=== PATIENT | female | born 1980 | race Caucasian/White ===

== ENCOUNTER 2016-12-08 15:17 | Emergency (ER) | payer SELFPAY ==
[~2016-12-08] VITALS: Ht 162.6 cm; Wt 73.0 kg
[2016-12-08 15:19] VITALS: BP 164/90; PULSE 101; RESP 17; TEMP 97.9; O2SAT 99
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
--- NOTE | 2016-12-08 17:36 | RADRPT ---
EXAM DATE/TIME: 12/08/2016 17:21 [facility] COMPARISON: No previous studies available for comparison. INDICATIONS : Left foot pain after fall. MEDICAL HISTORY : None. SURGICAL HISTORY : None. ENCOUNTER: Initial ACUITY: 2 days PAIN SCORE: 5/10 LOCATION: Left foot, 2nd digit. FINDINGS: Three view examination of the left foot demonstrates no dislocation or fracture. The second toe swoll en. The tarsal bones appear intact. The interphalangeal and metatarsophalangeal joints are intact. The calcaneus is intact. Bony mineralization is normal. CONCLUSION: Soft tissue swelling without evidence of acute fracture involving the left second toe . Isaías Bean MD on December 08, 2016 at 17:33 Board Certified Radiologist. This report was verified electronically.
--- NOTE | 2016-12-08 17:37 | RADRPT ---
EXAM DATE/TIME: 12/08/2016 17:24 [facility] COMPARISON: No previous studies available for comparison. INDICATIONS : Cough. MEDICAL HISTORY : smoker. SURGICAL HISTORY : None. ENCOUNTER: Initial ACUITY: 2 months PAIN SCORE: 0/10 LOCATION: Bilateral chest FINDINGS: PA and lateral views of the chest demonstrate the lungs to be symmetrically aerated without evidence of mass, infiltrate or effusion. The cardiomediastinal contours are unremarkable. Osseous structure s are intact. CONCLUSION: No acute disease. Isaías Bean MD on December 08, 2016 at 17:35 Board Certified Radiologist. This report was verified electronically.
[2016-12-08 17:48] LABS: AUTOMATED NEUTROPHIL # 2.7 TH/MM3 (1.8-7.7); BASOPHIL % 0.7 % (0.0-2.0); EOSINOPHIL # 0.1 TH/MM3 (0-0.4); EOSINOPHIL % 2.4 % (0.0-4.0); HEMATOCRIT 43.7 % (35.0-46.0); LYMPH % 31.5 % (9.0-44.0); LYMPHOCYTE # 1.5 TH/MM3 (1.0-4.8); MEAN CELL VOLUME 99.2 FL (80.0-100.0); MEAN CORPUSCULAR HEMOGLOBIN 33.8 PG (27.0-34.0); MEAN CORPUSCULAR HGB CONC 34.1 % (32.0-36.0); NEUT % 56.4 % (16.0-70.0); PLATELET COUNT 88 TH/MM3 (150-450); RED CELL DISTRIBUTION WIDTH 13.5 % (11.6-17.2); WHITE BLOOD COUNT 4.7 TH/MM3 (4.0-11.0)
[2016-12-08 17:51] VITALS: BP 181/80; PULSE 112; RESP 18; O2SAT 96
[2016-12-08 17:53] LABS: HEMO FLAGS AUTO DIFF
[2016-12-08 18:02] LABS: ANION GAP 10 MEQ/L (5-15); APTT (PATIENT) 27.6 SEC (24.3-30.1); INTERNATIONAL NORMALIZED RATIO 0.9 RATIO; PROTHROMBIN TIME - PATIENT 10.3 SEC (9.8-11.6)
[2016-12-08 18:07] LABS: ALKALINE PHOSPHATASE 76 U/L (45-117); ALT (GPT) 179 U/L (10-53); AST (GOT) 184 U/L (15-37); BICARBONATE 28.5 MEQ/L (21.0-32.0); BLOOD UREA NITROGEN 5 MG/DL (7-18); CHLORIDE 105 MEQ/L (98-107); GLOMERULAR FILTRATION RATE 84 ML/MIN (>89); POTASSIUM 3.6 MEQ/L (3.5-5.1); SODIUM (NA) 143 MEQ/L (136-145); TOTAL BILIRUBIN ADULT 0.4 MG/DL (0.2-1.0)
[2016-12-08 18:14] VITALS: BP 145/84; PULSE 103; RESP 18; O2SAT 98
[2016-12-08] MEDS ORDERED: ACETAMINOPHEN/HYDROcodone 325 MG/5 MG TAB PO ONE (18:15)
[2016-12-08 18:26] LABS: PLATELET ESTIMATE SMEAR LOW (NORMAL); PLATELET MORPHOLOGY NORMAL (NORMAL); SCAN/DIFF AUTO DIFF CONFIRMED
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
[2016-12-08] MEDS ORDERED: DICL75TA PO (19:16)
--- NOTE | 2016-12-08 19:25 | PD ---
Physical Exam Date Seen by Provider: Dec 08, 2016 Time Seen by Provider: 19:16 Narrative 36-year-old female that presents to the ED for evaluation of head trauma and no trauma. Case was signed out to me by Luz KINSEY who ordered initial labs and testing. Please refer to her note. On my exam patient is neurovascularly intact. She complains of only a headache as well as some left toe pain. Data Data Last Documented VS Vital Signs Date Time Temp Pulse Resp B/P Pulse Ox O2 Delivery O2 Flow Rate FiO2 12/08/16 18:14 103 18 145/84 98 Room Air 12/08/16 15:19 97.9 Orders Chest, Pa & Lat (12/08/16 ) Ct Brain W/O Iv Contrast(Rout) (12/08/16 ) Ct Cerv Spine W/O Contrast (12/08/16 ) Ed Urine Pregnancytest Poc (12/08/16 17:06) Alcohol (Ethanol) (12/08/16 17:06) Comprehensive Metabolic Panel (12/08/16 17:06) Complete Blood Count With Diff (12/08/16 17:06) Act Partial Throm Time (Ptt) (12/08/16 17:06) Prothrombin Time / Inr (Pt) (12/08/16 17:06) Foot, Complete ([id number]) (12/08/16 ) Acetamin-Hydrocod 325-5 Mg ([place] 5-325 (12/08/16 18:15) Labs Laboratory Tests Test 12/08/16 17:30 White Blood Count 4.7 TH/MM3 Red Blood Count 4.40 MIL/MM3 Hemoglobin 14.9 GM/DL Hematocrit 43.7 % Mean Corpuscular Volume 99.2 FL Mean Corpuscular Hemoglobin 33.8 PG Mean Corpuscular Hemoglobin 34.1 % Concent Red Cell Distribution Width 13.5 % Platelet Count 88 TH/MM3 Mean Platelet Volume 8.3 FL Neutrophils (%) (Auto) 56.4 % Lymphocytes (%) (Auto) 31.5 % Monocytes (%) (Auto) 9.0 % Eosinophils (%) (Auto) 2.4 % Basophils (%) (Auto) 0.7 % Neutrophils # (Auto) 2.7 TH/MM3 Lymphocytes # (Auto) 1.5 TH/MM3 Monocytes # (Auto) 0.4 TH/MM3 Eosinophils # (Auto) 0.1 TH/MM3 Basophils # (Auto) 0.0 TH/MM3 CBC Comment AUTO DIFF Differential Comment AUTO DIFF CONFIRMED Platelet Estimate LOW Platelet Morphology Comment NORMAL Red Cell Morphology Comment NORMAL Prothrombin Time 10.3 SEC Prothromb Time International 0.9 RATIO Ratio Activated Partial 27.6 SEC Thromboplast Time Sodium Level 143 MEQ/L Potassium Level 3.6 MEQ/L Chloride Level 105 MEQ/L Carbon Dioxide Level 28.5 MEQ/L Anion Gap 10 MEQ/L Blood Urea Nitrogen 5 MG/DL Creatinine 0.78 MG/DL Estimat Glomerular Filtration 84 ML/MIN Rate Random Glucose 105 MG/DL Calcium Level 8.6 MG/DL Total Bilirubin 0.4 MG/DL Aspartate Amino Transf 184 U/L (AST/SGOT) Alanine Aminotransferase 179 U/L (ALT/SGPT) Alkaline Phosphatase 76 U/L Total Protein 8.0 GM/DL Albumin 4.4 GM/DL Ethyl Alcohol Level 315 MG/DL [facility] Medical Record Reviewed: Yes Supervised Visit with DAMASO: No Interpretation(s) CBC & BMP Diagram 12/08/16 17:30 Alcohol in the 300s Last Impressions Head CT 12/08/16 0000 Signed Impressions: Service Date/Time: Thursday, December 08, 2016 18:33 - CONCLUSION: Normal examination for a patient of this age. Savage Lemus MD Cervical Spine CT 12/08/16 0000 Signed Impressions: Service Date/Time: Thursday, December 08, 2016 18:33 - CONCLUSION: 1. Kyphosis centered at C6. 2. Primary bony degenerative changes at C5-6 and C6-7 with disc space narrowing. 3. No acute bony fracture. Savage Lemus MD X-ray of the left foot and chest was negative. Coags and LFTs within normal limits. Differential Diagnosis Fracture versus head injury versus ICH versus subarachnoid hemorrhage versus bleeding versus migraine headache versus alcohol abuse Narrative Course 36-year-old female that presents to the ED for evaluation of head injury and toe injury. Patient was signed out to me by luz KINSEY. Please refer to her note. Labs and imaging were essentially unremarkable. No sign of acute disease other than positive alcohol of 300. Patient was given Lortab for pain with good results here. Patient feels improved. Patient has been in no distress. On my exam she is neurovascularly intact in no sign of acute disease other than a bruise to her left second toe. Patient does have intoxication on board. I do not seen any need at this time for further testing. She has been sleeping in her room in no distress and in no pain. patient will be allowed to sleep of her intoxication until medically sober unless somebody can come pick her up who is sober and responsible. She agrees with this plan. Follow with PCP. See ED worsening symptoms. Patient will be sent home with prescription for diclofenac sodium. Diagnosis Primary Impression: Head injury, acute Qualified Code: S09.90XA - Head injury, acute, initial encounter Additional Impressions: Toe contusion Qualified Code: S90.222A - Contusion of lesser toe of left foot with damage to nail, initial encounter Alcohol abuse Patient Instructions: General Instructions, Narcotic given in the ED Additional Instruction: Take medication as prescribed only needed for pain. Follow with PCP. Stop drinking alcohol for a week as you suffered a head injury. See ED worsening symptoms. Med/Other Pt SpecificInfo: Prescription(s) given Scripts Diclofenac Sodium DR 75 Mg Tabdr75 Mg PO BID PRN (PAIN SCALE 1 TO 10) #20 TAB Prov:Rico Overton MD 12/08/16 Disposition: 01 DISCHARGE HOME Condition: Stable Jose A Bonner Dec 08, 2016 19:25
== END 2016-12-08 19:42 | disposition home or self-care (01) ==
LOC: NEPC 15:17
DX: S09.90XA Unspecified injury of head, initial encounter (principal); S90.222A Contusion of left lesser toe(s) with damage to nail, initial encounter; F10.10 Alcohol abuse, uncomplicated; Z72.0 Tobacco use; W04.XXXA Fall while being carried or supported by other persons, initial encounter
CPT/HCPCS: 70450; 71020; 72125; 73630; 80053; 80307; 84703; 85025; 85610; 85730

== ENCOUNTER 2017-09-24 16:40 | Emergency (ER) | payer SELFPAY ==
[~2017-09-24 16:40] MED LIST: DICL75TA PO
[2017-09-24 16:42] VITALS: BP 183/116; PULSE 114; RESP 16; TEMP 98.8; O2SAT 99
--- NOTE | 2017-09-24 18:17 | RADRPT ---
EXAM DATE/TIME: 09/24/2017 18:01 [facility] COMPARISON: CT BRAIN W/O CONTRAST, December 08, 2016, 18:33. INDICATIONS : Trauma, fall. RADIATION DOSE: 56.35 CTDIvol (mGy) MEDICAL HISTORY : Hypertension. SURGICAL HISTORY : None. ENCOUNTER: Initial ACUITY: 1 day PAIN SCALE: 8/10 LOCATION: cranial TECHNIQUE: Multiple contiguous axial images were obtained of the head. Using automated exposure control and adj ustment of the mA and/or kV according to patient size, radiation dose was kept as low as reasonably a chievable to obtain optimal diagnostic quality images. DICOM format image data is available electro nically for review and comparison. FINDINGS: The ventricles are symmetric and normal. No abnormal extra-axial fluid collections are identified. Th ere is no mismatched cranial hemorrhage or mass. Esophagus suggest acute infarction. There is fluid a nd mucosal thickening in the left maxillary sinus. Extracranial structures are grossly intact. CONCLUSION: No acute intracranial injury Ezequiel Hurd MD on September 24, 2017 at 18:14 Board Certified Radiologist. This report was verified electronically.
--- NOTE | 2017-09-24 18:32 | PD ---
HPI Chief Complaint: Fall Time Seen by Provider: 18:17 Travel History International Travel<30 days: No Contact w/Intl Traveler<30days: No Traveled to known affect area: No History of Present Illness HPI 37 year old female presents to the emergency Department with complaint of headache, neck pain, low back pain after falling down a flight of stairs at her house on September 20. She said she hit her head and lost consciousness. She has been ambulatory since. She denies chest pain, abdominal pain. Reports feeling short of breath. Reports episodes of vomiting for the past 3 days. Denies hematemesis. Says she has felt confused. Denies disorientation, slurred speech, change in mentation. Denies focal deficits or weakness. Denies difficulty ambulating. Denies encopresis, incontinence, saddle anesthesias. Denies paresthesias, loss of sensation, decreased range of motion , decreased strength all extremities. Headache is generalized to the top and back of the head. Rates all her pain 8/10. Describes her pain as throbbing, aching. Took a Lortab earlier today for symptom management. Pain is aggravated with movement. Reports tobacco use. No known relieving factors. Allergies to amitriptyline. Has no other medical complaints. No other modifying factors or associated signs and symptoms. PFSH Past Medical History Hypertension: Yes ?: Not : 3 Para: 3 Past Surgical History Other Surgery: Yes Social History Alcohol Use: Yes Tobacco Use: Yes Substance Use: No Allergies-Medications (Allergen,Severity, Reaction): Coded Allergies: amitriptyline (Unverified Allergy, Severe, SWELLING, 09/24/17) Reported Meds & Prescriptions Reported Meds & Active Scripts Active Robaxin (Methocarbamol) 500 Mg Tab 500 Mg PO QID PRN Ibuprofen 800 Mg Tab 800 Mg PO Q6HR PRN Diclofenac Sodium DR (Diclofenac Sodium) 75 Mg Tabdr 75 Mg PO BID PRN Review of Systems Except as stated in HPI: all other systems reviewed are Neg Physical Exam Narrative GENERAL: Well-nourished, well-developed female patient, in no acute distress; breath smells of EtOH. SKIN: Warm and dry. A couple Bruises noted to bilateral upper extremities. HEAD: Atraumatic. Normocephalic. No facial or scalp abrasions or lacerations noted. Tongue midline. No facial droop noted. Finger to nose test normal. EYES: Pupils equal and round at 3 mm with brisk reaction. No scleral icterus. No injection or drainage. No raccoon eyes. ENT: Mucosa pink and moist. No erythema or exudates. No uvular edema. No uvular , palatal, or tonsillar deviation. Airway patent. Nares without nasal blood, purulent drainage or septal hematoma. No rhinorrhea. EARS: Bilateral pinnae and external canals appear within normal limits. Bilateral tympanic membranes without erythema, dullness, hemotympanum or perforation. No otorrhea. No prado signs. NECK: Moving freely. Trachea midline. No lymphadenopathy. Active rotation of the neck greater than 45 left and right. Midline point tenderness on palpation of the cervical spine. No obvious deformities. CHEST: No retractions or use of accessory muscles. CARDIOVASCULAR: Regular rate and rhythm. No murmur appreciated. RESPIRATORY: No accessory muscle use. Clear to auscultation. Breath sounds equal bilaterally. GASTROINTESTINAL: Abdomen soft, non-tender, nondistended. Hepatic and splenic margins not palpable. Bowel sounds are active 4 quadrants. MUSCULOSKELETAL: Bilateral lower extremities supple and non-tense with 2+ pedal pulses and sensory intact without erythema or edema. Bilateral straight leg raises is negative for low back pain. Active dorsiflexion and extension of feet. Ambulatory with normal gait. No obvious deformities. No clubbing. No cyanosis. No edema. BACK: No Point tenderness on palpation of the thoracic spine. No midline tenderness on palpation of the lumbar spine and tenderness of the patient a bilateral iliosacral areas of the lower back. No obvious deformities. Patient sitting up in bed at 90. Ambulatory in room with normal gait. NEUROLOGICAL: Awake and alert. Oriented 3. No obvious cranial nerve deficits. Motor grossly within normal limits. Normal speech. No midline drift. No upper or lower extremity drift. No ataxia. Moves all extremities. 5/5 strength to all extremities. Sensory intact. PSYCHIATRIC: Appropriate mood and affect; insight and judgment normal. Data Data Last Documented VS Vital Signs Date Time Temp Pulse Resp B/P (MAP) Pulse Ox O2 Delivery O2 Flow Rate FiO2 09/24/17 19:21 09/24/17 16:42 98.8 114 16 99 Orders Orders Ed Urine Pregnancytest Poc (09/24/17 16:49) Ct Cerv Spine W/O Contrast (09/24/17 ) Ct Brain W/O Iv Contrast(Rout) (09/24/17 ) Ct Lumb Spine W/O Contrast (09/24/17 ) Chest, Single Ap (09/24/17 18:35) Ketorolac Inj (Toradol Inj) (09/24/17 19:00) Orphenadrine Inj (Norflex Inj) (09/24/17 19:00) Ed Discharge Order (09/24/17 19:08) [facility] Medical Decision Making Medical Screen Exam Complete: Yes Emergency Medical Condition: Yes Medical Record Reviewed: Yes Differential Diagnosis Fall, neck strain, low back strain, posttraumatic headache, acute headache medical clearance Narrative Course 37-year-old female with neck pain, low back pain, headache after falling down a flight of stairs on [employer]. Patient has smell of EtOH on her breath. She does not know how many stairs she fell down. She reports hitting her head and losing consciousness. Patient reports feeling short of breath. Her lung sounds are clear and equal throughout. She is in no acute distress. Oxygen saturation is 99% on room air. Denies encopresis, incontinence, saddle anesthesias. Neuro exam is unremarkable. CT lumbar spine, CT cervical spine, CT head ordered in triage. Chest x-ray ordered for complaint of shortness of breath. 1844: CT lumbar spine, head CT, cervical spine CT concludes: Lumbar Spine CT 09/24/17 0000 Signed Impressions: Service Date/Time: August 18:04 - CONCLUSION: No acute bony injury in the lumbar spine Ezequiel Hurd MD Head CT 09/24/17 0000 Signed Impressions: Service Date/Time: August 18:01 - CONCLUSION: No acute intracranial injury Ezequiel Hurd MD Cervical Spine CT 09/24/17 0000 Signed Impressions: Service Date/Time: August 18:00 - CONCLUSION: Stable appearance of the cervical spine. No evidence of acute bony injury Ezequiel Hurd MD Toradol and Norflex ordered. 1900: Chest x-ray with no acute findings. Discussed all radiology findings with the patient. Discussed patient with Dr. Gonzalez when she agrees with discharge. Robaxin and ibuprofen prescribed for home. Instructed patient to follow up with primary care provider. Patient verbalizes understanding and agreement with treatment plan. Patient is medically cleared and stable for discharge. Discussed reasons to return to the emergency department. Patient agrees with treatment plan. The patients vital signs are stable and the patient is stable for outpatient follow-up and treatment. Patient discharged home, stable and in no acute distress. Diagnosis Primary Impression: Fall down stairs Qualified Codes: W10.8XXA - Fall (on) (from) other stairs and steps, initial encounter Additional Impressions: Neck strain Qualified Codes: S16.1XXA - Strain of muscle, fascia and tendon at neck level , initial encounter Low back strain Qualified Codes: S39.012A - Strain of muscle, fascia and tendon of lower back , initial encounter Headache Qualified Codes: R51 - Headache Shortness of breath Referrals: [facility] Primary Care Physician Patient Instructions: Acute Headache (ED), Cervical Neck Strain Exercises (GEN) , Chronic Post Traumatic Headache (ED), General Instructions, Low Back Strain ( ED), Neck Strain Exercises (GEN) Additional Instructions: Tylenol or ibuprofen as directed and as needed for pain Robaxin as prescribed and as needed for muscle spasms Heating pad and/or ice to affected area to reduce pain Avoid aggravating activities; increase activity as tolerated Follow-up with primary care provider Return to emergency department immediately with worsening of symptoms Med/Other Pt SpecificInfo: Prescription(s) given Scripts Methocarbamol (Robaxin) 500 Mg Tab 500 MG PO QID Y for MUSCLE SPASM, #30 TAB 0 Refills Prov: Regina Olvera 09/24/17 Ibuprofen (Ibuprofen) 800 Mg Tab 800 MG PO Q6HR Y for PAIN, #30 TAB 0 Refills Prov: Regina Olvera 09/24/17 Disposition: 01 DISCHARGE HOME Condition: Stable Regina Olvera Sep 24, 2017 18:32
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
[2017-09-24] MEDS ORDERED: ORPHENADRINE INJ 60 MG/2 ML AMP IM ONE (19:00)
[2017-09-24] MEDS ORDERED: KETOROLAC TROMETHAMINE 60 MG/2 ML (IM) VIAL IM ONE (19:00)
[2017-09-24] MEDS ORDERED: ROBA500T PO (19:02)
[2017-09-24] MEDS ORDERED: IBUP1TAB7 PO (19:02)
== END 2017-09-24 19:36 | disposition home or self-care (01) ==
LOC: NEPD 16:40
DX: S16.1XXA Strain of muscle, fascia and tendon at neck level, initial encounter (principal); S39.012A Strain of muscle, fascia and tendon of lower back, initial encounter; R06.02 Shortness of breath; R11.10 Vomiting, unspecified; R41.0 Disorientation, unspecified; I10 Essential (primary) hypertension; W10.8XXA Fall (on) (from) other stairs and steps, initial encounter; Y92.008 Other place in unspecified non-institutional (private) residence as the place of occurrence of the external cause; Z72.0 Tobacco use
CPT/HCPCS: 70450; 71010; 72125; 72131; 84703; 96372; 99285; J1885; J2360

== ENCOUNTER 2017-11-15 14:41 | Emergency (ER) | payer SELFPAY ==
[~2017-11-15] VITALS: Ht 160 cm; Wt 68.0 kg
[~2017-11-15 14:41] MED LIST changes: +IBUP1TAB7 PO; +ROBA500T PO
[2017-11-15 14:45] VITALS: BP 174/104; PULSE 118; RESP 16; TEMP 98.2; O2SAT 97
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
[2017-11-15] MEDS ORDERED: ACETAMINOPHEN/HYDROcodone 325 MG/10 MG TAB PO ONE (16:00)
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
[2017-11-15] MEDS ORDERED: diphenhydrAMINE HCL 25 MG CAP PO ONE (17:15)
[2017-11-15] MEDS ORDERED: HYDR-3516 PO (17:18)
[2017-11-15] MEDS ORDERED: DICL75TA PO (17:18)
== END 2017-11-15 18:02 | disposition home or self-care (01) ==
LOC: NEPE 14:41
DX: S00.11XA Contusion of right eyelid and periocular area, initial encounter (principal); S70.02XA Contusion of left hip, initial encounter; Y04.2XXA Assault by strike against or bumped into by another person, initial encounter; Y93.01 Activity, walking, marching and hiking
CPT/HCPCS: 70450; 70486; 71045; 72125; 72128; 73502; 99284